=== PATIENT | female | born 1985 | race Hispanic/Latino ===

== ENCOUNTER → 2019-03-03 00:26 | Outpatient (CLI) | payer MEDICAID ==
[~2019-03-03 00:26] MED LIST: LACTATED RINGERS 500 ML IV ONE
[2019-03-03 01:04] VITALS: BP 134/76
== END | disposition home or self-care (01) ==
LOC: TRG 00:26 → LD 00:36
PROVIDERS: ATTEND Obstetrics & Gynecology
DX: O26.852 Spotting complicating pregnancy, second trimester (principal); O99.342 Other mental disorders complicating pregnancy, second trimester; F31.9 Bipolar disorder, unspecified; Z3A.26 26 weeks gestation of pregnancy
CPT/HCPCS: 99212; G0463; J7120